=== PATIENT | female | born 1930 | race Caucasian/White ===

== ENCOUNTER 2018-03-19 19:30 | Emergency (ER) | payer MEDICARE, BC ==
[~2018-03-19] VITALS: Ht 167.6 cm; Wt 54.5 kg
[~2018-03-19 19:30] MED LIST: HYDROCODONE BIT1 TA2 PO; LEVOTHROID125 MCG PO; PRILOSEC20 MG/CAP PO; SIMVASTATIN20 MG PO
[2018-03-19] MEDS ORDERED: CLOPIDOGREL75 MG PO (19:48)
[2018-03-19 20:14] LABS: HEMATOCRIT 36.1 % (37.0-47.0); HEMOGLOBIN 11.9 g/dl (12.0-16.0); IMMATURE GRANULOCYTES 0.2 % (0.0-5.0); NEUT# 2.41 thou/uL (2.00-7.15); RED BLOOD COUNT 3.72 mill/uL (4.20-5.60); RED CELL DISTRI WIDTH 12.9 % (11.5-15.5)
[2018-03-19 20:35] LABS: ALBUMIN 3.5 g/dL (3.2-5.0); ALKALINE PHOSPHATASE 122 u/l (38-126); ANION GAP 11 (6-22 (CALC)); BILIRUBIN, TOTAL 0.5 mg/dL (0.0-1.4); BUN 17 mg/dL (8-23); BUN/CREATININE RATIO 22 (12-20 (CALC)); CARBON DIOXIDE 24 mmol/l (22-30); CHLORIDE 111 mmol/l (95-108); CREATININE 0.7 mg/dL (0.5-1.0); GFR > 60 ML/MIN (>=60 (CALC)); GFR FOR AFR.AMER. > 60 ML/MIN (>=60 (CALC)); SGOT/AST 34 u/l (9-36); SODIUM 142 mmol/l (137-146); TOTAL PROTEIN 6.3 g/dL (6.3-8.2)
[2018-03-19 20:43] LABS: ACT PARTIAL THROMBO TIME 23.1 SECONDS (20.0-32.5); PROTHROMBIN TIME 10.4 SECONDS (9.0-12.5)
[2018-03-19 21:45] VITALS: BP 107/56
== END 2018-03-19 21:55 ==
LOC: ED 19:30
DX: S72.142A Displaced intertrochanteric fracture of left femur, initial encounter for closed fracture (principal); S50.312A Abrasion of left elbow, initial encounter; E03.9 Hypothyroidism, unspecified; G89.29 Other chronic pain; M54.9 Dorsalgia, unspecified; W01.0XXA Fall on same level from slipping, tripping and stumbling without subsequent striking against object, initial encounter; Y92.512 Supermarket, store or market as the place of occurrence of the external cause; Z86.73 Personal history of transient ischemic attack (TIA), and cerebral infarction without residual deficits